=== PATIENT | female | born 1970 | race Caucasian/White ===

== ENCOUNTER 2016-12-08 15:44 | Emergency (ER) | payer BC ==
[~2016-12-08] VITALS: Ht 172.7 cm; Wt 89.8 kg
[~2016-12-08 15:44] MED LIST: CIPRO 500MG TA500 MG PO; MEDROL 4MG. DOSE4 MG PO
[2016-12-08] MEDS ORDERED: ADIPEX-P37.5 M2 PO (15:55)
--- NOTE | 2016-12-08 16:14 | [facility] Report ---
History of Present Issue Date/Time Seen by Provider 12/08/16 1600 Visit Reason Pt arrived:Walked Presenting Problem:EAR PAIN IN BOTH EARS AND SORE THROAT X 3 DAYS Location if Accident: Onset of symptoms date/time:/ or onset unknown for:MEDICAL HX UNKNOWN Have you (or family members/close friends) recently traveled outside the [place]? N If Yes, where/when: Have you had exposure to infectious disease within the past month? TB? Other? Specify: Here c/o bilateral ear pain w/ left worse then right and sore throat just starting yesterday. Rhinorrhea and nasal congestion new today. No fever, aches, malaise. Denies ear drainage or change in hearing. Had old left over keflex at home and took one yesterday and two today. No known sick contacts. Source patient Exam Limitations no limitations ALLERGIES Coded Allergies: No Known Allergies (12/08/16) Home Medications Reported Medications Phentermine HCl (Adipex-P) 37.5 MG PO DAILY History Medical History General Angina: No PA: No Hypertension? No Hyperlipidemia? No CHF? No COPD? No Asthma? Yes CVA? No Seizures? No Diabetes? No GB Disease: No MRSA? No TB? No Cancer? No Immunization HX DT/Tetanus 5-10 YRS Surgical Hx Previous Surgery?Y C SECTION X 2 LEFT ARM X 4 Social History Smoking Hx Smoker: Never Smoker Tobacco: No Alcohol Alcohol: No Review of Systems All Other Systems Reviewed and Negative Constitutional see HPI Eyes denies drainage, denies other (itching) ENT see HPI. denies: throat swelling. Respiratory denies cough Gastrointestinal denies no symptoms reported Skin denies rash Psychiatric/Neurological denies headache Physical Exam Vital Signs Vital Signs Date Time Temp Pulse Resp B/P Pulse O2 O2 Flow FiO2 Ox Delivery Rate 12/08 1553 98.7 96 20 150/89 98 General Appearance normal appearance, no apparent distress Eye Exam - bilateral eye normal exam Ear, Nose, Throat molly EACs normal, right TM pearly arita and intact, left TM bulging and light red Neck non-tender, supple Respiratory Status No: respiratory distress, productive cough, non productive cough. Lung Sounds anterior: lungs clear. posterior: lungs clear. bilateral: lungs clear. Cardiovascular regular rate/rhythm, no peripheral edema, no murmur Neurologic alert, oriented x 3 Mental status normal mood/affect Skin normal color, warm/dry Lymphatic no adenopathy Medical Decision Making LABS/Meds/Orders Pt receiving controlled substance in ED? No Results/Orders Laboratory Tests 12/08/16 1553: Group A Strep Screen NOT DETECTED Orders Procedure Date/time Status [facility] STREP SCREEN 12/08 1553 Complete Departure Departure Time of Disposition 1622 Disposition DC Home or Self Care(routine) Clinical Impression Primary Impression: Left otitis media Qualifiers: Otitis media type: unspecified Chronicity: unspecified Qualified Code: H66.92 - Otitis media, unspecified, left ear Condition STABLE Referrals NO REFERRAL Follow up with your primary care for new, worsening or persistant symptoms. It is a good idea to have a repeat ear exam in 10-14 days to ensure infection resolved. Patient Instructions DI for Otitis Media (Middle Ear Infection)-Child Additional Instructions Start antibiotic immediately. Be sure to take for the full length of time ordered even though you will be feeling better beforehand. Always finish your antibiotics. Never start taking left over antibiotics before knowing if they are appropriate Tylenol and/or ibuprofen as needed for pain antihistamines/decongestants as we discussed to help w/ nasal symptoms sleep elevated warm salt water gargles drinking warm fluids Discharge Counseling Counseled pt/family regarding diagnosis, medications/RX, home care, follow up needs Prescriptions Current Visit Scripts AMOXICILLIN (Amoxicillin 875MG Tab) 875 MG PO BID #20 TAB at 2548
[2016-12-08] MEDS ORDERED: AMOXICILLIN875 MG PO (16:32)
[2016-12-08 16:34] VITALS: BP 150/89
== END 2016-12-08 16:34 | disposition home or self-care (01) ==
LOC: UTC 15:44
DX: H66.92 Otitis media, unspecified, left ear (principal)